=== PATIENT | female | born 1960 | race Caucasian/White ===

== ENCOUNTER → 2025-01-17 | Outpatient (REF) | payer MEDICARE, OTHER ==
[2025-01-17 18:03] LABS: PERCENT SATURATION 22.2 % (13.2-45.0)
[2025-01-17 18:07] LABS: FERRITIN 86.7 NG/ML (7.3-270.7)
[2025-01-17 18:10] LABS: FOLATE 5.3 NG/ML (>5.4)
[2025-01-17 18:19] LABS: TOTAL PROTEIN,RANDOM URINE 32.6 MG/DL (0.0-14.0)
[2025-01-17 18:24] LABS: CREATININE,RANDOM URINE 97.1 MG/DL
[2025-01-19 05:08] LABS: PROTEIN, TOTAL SO 7.9 g/dL (6.1-8.1)
[2025-01-21 06:17] LABS: ALBUMIN SO 4.5 g/dL (3.8-4.8); ALPHA 1 GLOBULINS SO 0.3 g/dL (0.2-0.3); ALPHA 2 GLOBULINS SO 0.9 g/dL (0.5-0.9); BETA 2 GLOBULIN SO 0.5 g/dL (0.2-0.5); BETA GLOBULIN SO 0.5 g/dL (0.4-0.6); GAMMA GLOBULINS SO 1.1 g/dL (0.8-1.7)
== END ==
LOC: M LAB REF 16:55
PROVIDERS: ATTEND Internal Medicine Nephrology
DX: E11.21 Type 2 diabetes mellitus with diabetic nephropathy (principal); D63.1 Anemia in chronic kidney disease; N18.9 Chronic kidney disease, unspecified